=== PATIENT | female | born 1975 | race African-American/Black ===

== ENCOUNTER 2017-05-15 20:56 | Inpatient (IN) | payer MEDICAID ==
[~2017-05-15] VITALS: Ht 162.6 cm; Wt 71.7 kg
[2017-05-15] MEDS ORDERED: ACETAMINOPHEN 650MG SUPP PR STA (21:29)
[2017-05-15] MEDS ORDERED: PIPERACILLIN/TAZ 3.375G PREMIX 50 ML IV ONE (21:30)
[2017-05-15] MEDS ORDERED: SODIUM CHLORIDE 0.9% 1000ML BAG (SEPSIS BOLUS) IV ONE (21:30)
[2017-05-15] MEDS ORDERED: METOPROLOL TARTRATE 5MG/5ML VIAL IV ONE ×2 (21:30→23:45)
[2017-05-15] MEDS ORDERED: ACETAMINOPHEN 325MG TABLET PO ONE ×2 (22:00→22:15)
[2017-05-15 22:11] LABS: BG BASE EXCESS -5.4 mmol/L (-2.0-2.0); BG CARBOXYHEMOGLOBIN 0.2 % (0.5-1.5); BG DEOXYHEMOGLOBIN 4.7 % (0.0-5.0); BG FRACTION INSPIRED OXYGEN 21; BG HCO3 ACT 18.7 mmol/L (22.0-26.0); BG METHEMOGLOBIN 0.3 % (0.0-1.5); BG OXYGEN SATURATION 95.3 % (92.0-98.5); BG OXYHEMOGLOBIN 94.8 % (94.0-97.0); BG PCO2 31.9 mmHg (35.0-45.0); BG PH 7.385 (7.350-7.450); BG PO2 78.9 mmHg (75.0-100.0); BG SAMPLE SITE LEFT RADIAL; BG TOTAL HEMOGLOBIN 12.7 g/dL (12.0-18.0); BG VENT MODE ROOM AIR
[2017-05-15 22:59] LABS: BASOPHILS % 0.2 % (0.0-2.0); EOSINOPHILS % 0.2 % (0.0-5.0); HEMATOCRIT. 35.8 % (36.0-48.0); HEMOGLOBIN. 11.3 g/dL (12.0-16.0); LYMPHOCYTES % 13.5 % (20.0-50.0); MEAN CORPUSCULAR HEMOGLOBIN 22.5 pg (28.0-32.0); MEAN CORPUSCULAR VOLUME 71.4 fL (81.0-99.0); MONOCYTES % 8.9 % (2.0-8.0); NEUTROPHILS % 77.2 % (40.0-76.0); PLATELET 184 x1000/uL (130-400); RED BLOOD CELL COUNT 5.01 mill/uL (4.2-5.4); RED CELL DISTRIBUTION WIDTH 16.2 % (11.6-14.6)
[2017-05-15] MEDS ORDERED: ONDANSETRON HCL 4MG/2ML VIAL IV ONE (23:00)
[2017-05-15 23:07] LABS: INR 1.2; PROTHROMBIN TIME 12.5 sec (9.4-11.6)
[2017-05-15 23:14] LABS: CARBON DIOXIDE 23 mEq/L (21-32); CHLORIDE 106 mEq/L (98-107); TROPONIN I < 0.02 ng/mL (0.00-0.04)
[2017-05-15 23:20] LABS: T4 FREE > 8.00 ng/dL (0.76-1.46)
[2017-05-15 23:27] LABS: CLARITY URINE CLEAR (CLEAR); COLOR URINE YELLOW (YELLOW); GLUCOSE URINE NEGATIVE (NEGATIVE); KETONES URINE 1+ (NEGATIVE); LEUKOCYTE ESTERASE URINE NEGATIVE (NEGATIVE); NITRITE URINE NEGATIVE (NEGATIVE); OCCULT BLOOD URINE 1+ (NEGATIVE); PROTEIN URINE 1+ (NEGATIVE); SPECIFIC GRAVITY URINE 1.027 (1.005-1.030)
[2017-05-15] MEDS ORDERED: KCL 20MEQ/100ML PREMIX 100 ML IV ONE (23:30)
[2017-05-15 23:43] LABS: *AMPHETAMINES SCREEN URINE NEGATIVE (NEGATIVE); *BARBITURATES SCREEN URINE NEGATIVE (NEGATIVE); *BENZODIAZEPINES SCREEN URINE NEGATIVE (NEGATIVE); *COCAINE SCREEN URINE NEGATIVE (NEGATIVE); CANNABINOID URINE SCREEN NEGATIVE (NEGATIVE); METHADONE URINE SCREEN NEGATIVE (NEGATIVE); OPIATES URINE SCREEN NEGATIVE (NEGATIVE); PHENCYCLIDINE URINE SCREEN NEGATIVE (NEGATIVE)
[2017-05-16] VITALS (30 sets, daily range): BP systolic 114–169; BP diastolic 45–110
[2017-05-16] LABS: HCG SCREEN NEGATIVE
[2017-05-16] MEDS ORDERED: LEVOFLOXACIN 500MG PREMIX 100 ML IV ONE
[2017-05-16] MEDS ORDERED: DIPHENHYDRAMINE 50MG/ML VIAL IV ONE (00:30)
[2017-05-16] MEDS: SODIUM CHLORIDE 0.9% 1,000 ML IV SCH ×2 (04:00→17:39)
[2017-05-16] MEDS ORDERED: MAGNESIUM/ALUMINUM HYDROXIDE/SIMETHICONE 30ML UDC PO PRN (05:15)
[2017-05-16] MEDS ORDERED: IPRATROPIUM/ALBUTEROL 0.5-3(2.5)MG/3ML NEB INH PRN (05:15)
[2017-05-16] MEDS ORDERED: ONDANSETRON HCL 4MG/2ML VIAL IV PRN (05:15)
[2017-05-16] MEDS ORDERED: CLONIDINE 0.1MG TABLET PO PRN (05:15)
[2017-05-16] MEDS ORDERED: METOPROLOL TARTRATE 25MG TABLET PO SCH (06:00)
[2017-05-16] MEDS ORDERED: PIPERACILLIN/TAZ 3.375G PREMIX 50 ML IV SCH ×2 (06:00→06:30)
[2017-05-16] MEDS: HYDROCORTISONE SOD SUCCINATE 100 MG/2 ML VIAL IV SCH ×3 (06:42→22:10)
[2017-05-16] MEDS: PROPYLTHIOURACIL 50MG TABLET PO SCH ×4 (06:43→20:00)
[2017-05-16] MEDS ORDERED: ACETAMINOPHEN 325MG TABLET PO PRN (07:00)
[2017-05-16] MEDS: ENOXAPARIN 40MG/0.4ML SYR SUBCUT SCH (08:24)
[2017-05-16 08:59] LABS: BASOPHILS % 0.2 % (0.0-2.0); EOSINOPHILS % 0.4 % (0.0-5.0); HEMATOCRIT. 32.1 % (36.0-48.0); HEMOGLOBIN. 10.1 g/dL (12.0-16.0); LYMPHOCYTES % 9.5 % (20.0-50.0); MEAN CORPUSCULAR HEMOGLOBIN 22.2 pg (28.0-32.0); MEAN CORPUSCULAR VOLUME 70.8 fL (81.0-99.0); MEAN PLATELET VOLUME 10.3 fl (7.4-10.4); MONOCYTES % 5.6 % (2.0-8.0); NEUTROPHILS % 84.3 % (40.0-76.0); PLATELET 166 x1000/uL (130-400); RED BLOOD CELL COUNT 4.54 mill/uL (4.2-5.4)
[2017-05-16 09:12] LABS: CARBON DIOXIDE 25 mEq/L (21-32); CHLORIDE 110 mEq/L (98-107)
[2017-05-16] MEDS: BUDESONIDE 0.5MG/2ML NEB HHN SCH ×2 (09:16→20:16)
[2017-05-16] MEDS: ALBUTEROL (0.083%) 2.5MG/3ML NEB HHN SCH ×3 (09:16→20:16)
[2017-05-16] MEDS ORDERED: METOPROLOL TARTRATE 25MG TABLET PO NR (09:45)
[2017-05-16] MEDS: GUAIFENESIN/CODEINE 100-10MG/5ML UDC PO PRN ×3 (09:48→23:38)
[2017-05-16] MEDS: AZITHROMYCIN 500 MG in DEXT 5% WATER 250 ML IV SCH (09:49)
[2017-05-16] MEDS ORDERED: TAP PO (10:06)
[2017-05-16] MEDS ORDERED: ALBU2SYR INH (10:06)
[2017-05-16] MEDS ORDERED: ATEN-42 PO (10:06)
[2017-05-16 11:07] LABS: CARBON DIOXIDE 21 mEq/L (21-32); CHLORIDE 110 mEq/L (98-107); CREATINE KINASE 88 IU/L (26-192); CREATINE KINASE MB FRACTION 1.1 ng/mL (0.5-3.6); HDL CHOLESTEROL 29 mg/dL (40-59); LDL CHOLESTEROL 19 mg/dL (5-100); TROPONIN I < 0.02 ng/mL (0.00-0.04)
[2017-05-16] MEDS ORDERED: PNEUMOCOCCAL 23-VAL P-SAC VAC 0.5 ML IM ONE (12:00)
[2017-05-16] MEDS: METOPROLOL TARTRATE 50MG TABLET PO SCH ×3 (12:11→23:59)
[2017-05-16] MEDS ORDERED: IOHEXOL-300 100 ML BOTTLE ONE ×2 (12:45→14:35)
[2017-05-16] MEDS ORDERED: SODIUM CHLORIDE 0.9% 10ML VIAL ONE ×2 (12:45→14:35)
[2017-05-16 18:54] LABS: CREATINE KINASE 78 IU/L (26-192); CREATINE KINASE MB FRACTION 1.3 ng/mL (0.5-3.6); TROPONIN I < 0.02 ng/mL (0.00-0.04)
[2017-05-16] MEDS: DIPHENHYDRAMINE 50MG/ML VIAL IV PRN (22:10)
[2017-05-17] VITALS (23 sets, daily range): BP systolic 33–170; BP diastolic 13–120
[2017-05-17] MEDS ORDERED: POTASSIUM IODIDE 1 GM/ML PO SCH
[2017-05-17] MEDS: ALBUTEROL (0.083%) 2.5MG/3ML NEB HHN PRN ×2 (00:31→04:30)
[2017-05-17] MEDS: POTASSIUM IODIDE/IODINE 20ML PO SCH ×4 (00:54→18:00)
[2017-05-17] MEDS: PROPYLTHIOURACIL 50MG TABLET PO SCH ×6 (03:23→20:13)
[2017-05-17] MEDS: METOPROLOL TARTRATE 50MG TABLET PO SCH ×3 (05:11→17:59)
[2017-05-17] MEDS: HYDROCORTISONE SOD SUCCINATE 100 MG/2 ML VIAL IV SCH ×3 (05:11→22:41)
[2017-05-17 06:04] LABS: BASOPHILS % 0.2 % (0.0-2.0); EOSINOPHILS % 0.1 % (0.0-5.0); HEMATOCRIT. 29.4 % (36.0-48.0); HEMOGLOBIN. 9.3 g/dL (12.0-16.0); LYMPHOCYTES % 33.4 % (20.0-50.0); MEAN CORPUSCULAR HEMOGLOBIN 22.5 pg (28.0-32.0); MEAN CORPUSCULAR VOLUME 70.8 fL (81.0-99.0); MEAN PLATELET VOLUME 10.5 fl (7.4-10.4); MONOCYTES % 12.3 % (2.0-8.0); PLATELET 155 x1000/uL (130-400); RED BLOOD CELL COUNT 4.16 mill/uL (4.2-5.4); RED CELL DISTRIBUTION WIDTH 15.9 % (11.6-14.6)
[2017-05-17] MEDS: GUAIFENESIN/CODEINE 100-10MG/5ML UDC PO PRN (06:07)
[2017-05-17 06:44] LABS: CHLORIDE 111 mEq/L (98-107)
[2017-05-17 07:01] LABS: CARBON DIOXIDE 24 mEq/L (21-32)
[2017-05-17] MEDS: ENOXAPARIN 40MG/0.4ML SYR SUBCUT SCH (08:29)
[2017-05-17] MEDS: BUDESONIDE 0.5MG/2ML NEB HHN SCH ×2 (08:46→22:06)
[2017-05-17] MEDS: ALBUTEROL (0.083%) 2.5MG/3ML NEB HHN SCH (08:46)
[2017-05-17] MEDS ORDERED: POTASSIUM CHLORIDE 20MEQ TABLET SR PO NR (09:15)
[2017-05-17] MEDS ORDERED: THROAT LOZENGES-BENZOCAINE/MENTH/CETYLPYRD CL LOZENGES MM PRN (09:15)
[2017-05-17] MEDS: AZITHROMYCIN 500 MG in DEXT 5% WATER 250 ML IV SCH (09:47)
[2017-05-17] MEDS: SODIUM CHLORIDE 0.9% 1,000 ML IV SCH (09:47)
[2017-05-17] MEDS: DIPHENHYDRAMINE 50MG/ML VIAL IV PRN (10:15)
[2017-05-17] MEDS ORDERED: MAGNESIUM 2 G PREMIX 50 ML IV NR (11:00)
[2017-05-17] MEDS: DILTIAZEM HCL 30MG TABLET PO SCH ×2 (11:12→17:59)
[2017-05-17] MEDS ORDERED: ALBUTEROL (0.083%) 2.5MG/3ML NEB HHN PRN (12:00)
[2017-05-17] MEDS ORDERED: GUAIFENESIN/CODEINE 100-10MG/5ML UDC PO PRN (12:00)
== END 2017-05-17 23:02 | disposition short-term general hospital (02) | DRG 720 ==
LOC: ER 21:18 → EDBEDREQSVC 23:24 → EDBEDREQTM 23:58 → EDBEDREQ 23:58 → ENRESERV 05-16 00:08 → CANRESERV 05-16 00:08 → CVICU 05-16 00:40 → ENRESERV 05-16 02:10 → CVICU 05-17 15:10
PROVIDERS: ADMIT Internal Medicine; ATTEND Internal Medicine
DX: A41.9 Sepsis, unspecified organism (principal); J96.00 Acute respiratory failure, unspecified whether with hypoxia or hypercapnia; R65.21 Severe sepsis with septic shock; E05.91 Thyrotoxicosis, unspecified with thyrotoxic crisis or storm; E46 Unspecified protein-calorie malnutrition; I27.2 Other secondary pulmonary hypertension; E86.0 Dehydration; E87.6 Hypokalemia; I10 Essential (primary) hypertension; I47.1 Supraventricular tachycardia; I49.9 Cardiac arrhythmia, unspecified; J20.9 Acute bronchitis, unspecified; J45.909 Unspecified asthma, uncomplicated; K76.0 Fatty (change of) liver, not elsewhere classified; D17.71 Benign lipomatous neoplasm of kidney; N83.201 Unspecified ovarian cyst, right side; N83.202 Unspecified ovarian cyst, left side; Z79.899 Other long term (current) drug therapy; Z80.0 Family history of malignant neoplasm of digestive organs; Z80.1 Family history of malignant neoplasm of trachea, bronchus and lung; Z83.3 Family history of diabetes mellitus; Z88.6 Allergy status to analgesic agent; Z97.5 Presence of (intrauterine) contraceptive device; Z90.49 Acquired absence of other specified parts of digestive tract; Z68.27 Body mass index [BMI] 27.0-27.9, adult
CPT/HCPCS: 36415; 36600; 71010; 71270; 74177; 80048; 80053; 80061; 80305; 81001; 82375; 82550; 82553; 82805; 83605; 83690; 83735; 83880; 84439; 84443; 84481; 84484; 84703; 85025; 85610; 86850; 86900; 87040; 87086; 87493; 90732; 93005; 93306; 93970; 94640; 94664; 96365; 96366; 96367; 96375; 96376; 97162; 99291; A4216; A6261; J0456; J1200; J1650; J1720; J1956; J2405; J2543; J3475; J3480; J3490; J7030; J7060; J7611; J7620; J7626; Q9967